=== PATIENT | male | born 1970 | race Caucasian/White ===

== ENCOUNTER 2017-02-26 09:57 | Inpatient (IN) | payer BC ==
[2017-02-26] VITALS (10 sets, daily range): BP systolic 160–220; BP diastolic 110–128
[~2017-02-26] VITALS: Ht 185.4 cm; Wt 120.2 kg
--- NOTE | ~2017-02-26 | CON ---
[place], [place] REPORT OF CONSULTATION NAME: SKYE FAN UNIT #: [id number] ROOM: 504 DOCTOR: ZAC CASIANO MD BIRTHDATE: [birth year] DOS: 02/26/2017 HISTORY OF PRESENT ILLNESS: This is a 46-year-old -[place] man who had hypertension diagnosed about 12 years ago. He has never had a heart attack, heart failure, stroke, cancer or kidney problems, COPD or any bleeding ulcers and no chronic ailments. He does not smoke. Father has hypertension as does his mother. No history of premature coronary artery disease. He had not been taking his medications for quite sometime now and went to see Dr. Chelsy Barba. Highest blood pressure recorded was 245/130 and it was little lower in the Emergency Department. He was admitted to the hospital for further assessment and management. He has received amlodipine, clonidine and small IV dose of labetalol in the ER and the last blood pressure was 196/122. He did not have any headaches or problem with vision, although on further questioning, it seems that he had a short episode of confusion. No swelling of the lower extremity or orthopnea. He does not admit to any exertional shortness of breath or any PND. He had left shoulder, left pectoralis area discomfort at rest and exertion did not make it worse. There were no accompanying palpitations. He had noticed some sweating. PHYSICAL EXAMINATION: GENERAL: This reveals a patient who is very pleasant, alert, oriented. cheerful, moderately overweight. There is no thyromegaly or finger clubbing. VITAL SIGNS: Pulse is regular, blood pressure 196/122. Most of the previous blood pressure recordings have been pretty much the same one being 220/128. NECK: JVP is normal. AJR is negative. There is no carotid bruit. HEART: There is no cardiomegaly. Auscultation reveals somewhat loud aortic component of the second heart sound. S4 is present. EXTREMITIES: There is no edema in the lower extremities. Pedal pulses are excellent. LUNGS: Clear to percussion and auscultation. ABDOMEN: Supple, nontender. No pulsatile masses present. DIAGNOSTIC STUDIES: An ECG showed normal sinus rhythm and a normal pattern. LABORATORY DATA: Glucose 89, BUN 7, creatinine 0.9, sodium 142, potassium 3.8, magnesium 2.0 and total CK of 373, slightly increased, but the troponin level was normal. Hemoglobin 14.7 g/dL. Chest x-ray demonstrated normal heart size and no pulmonary congestion. IMPRESSION: This patient has malignant hypertension that probably has called mild encephalopathy, i.e., mild confusional state for a short time. There is no evidence of cardiac decompensation. Renal function within normal. RECOMMENDATIONS: Obviously blood pressure need to be controlled, but I would recommend not to reduce the blood pressure too rapidly 180/100 or so of blood pressure for today and tomorrow would be fine and then medicine should be increased to finally bringing the blood pressure to about 125/80 or so. [place], [place] REPORT OF CONSULTATION NAME: SKYE FAN UNIT #: [id number] ROOM: [facility] DOCTOR: ZAC CASIANO MD BIRTHDATE: [birth year] He had chest pain. There is mild local tenderness over the shoulder. Because of the risk factors, I think it is probably a good idea to perform a Lexiscan Cardiolite study tomorrow. An echocardiogram would also be useful to assess any impact of severe hypertension on the heart. I thank you for this consult. ZAC CASIANO MD CM:CONSTR:REPORT OF CONSULTATION 1813 03/17/17 0843 interface
--- NOTE | ~2017-02-26 | EKG ---
[place], [place] ELECTROCARDIOGRAM REPORT NAME: SKYE FAN UNIT #: [id number] ROOM: 504 DOCTOR: ZAC CASIANO MD BIRTHDATE: [birth year] DOS: 02/26/2017 TIME: 1023 hours. Normal sinus rhythm at 90 beats per minute. The tracing is normal. No previous tracing is available for comparison. ZAC CASIANO MD CM:EKGRPT:ELECTROCARDIOGRAM REPORT [id number] ZAC CASIANO MD
--- NOTE | ~2017-02-26 | WRIGHTHP ---
[place], [place] PATIENT HISTORY AND PHYSICAL EXAM NAME: SKYE FAN [facility] #: [id number] UNIT #: [id number] ROOM: 504 DOCTOR: JOSE ANGEL FREEMAN MD BIRTHDATE: [birth year] DOS: 02/26/2017 HISTORY OF PRESENT ILLNESS: This patient is 46 years old. 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 He states he ran out of his medications several weeks ago and then finally went to see Dr. Gibson yesterday. His pressure systolic was in the 200s. Also had some left arm pain and dullness with some lightheadedness and diaphoresis, and also he felt slightly disoriented, so he was brought to the Emergency Room. His pressure was still in the 200s, and he was admitted with hypertensive emergency. The patient after admission has been placed on multiple medications. Blood pressure has come down slightly. He denies having any fever or any chills,. He does have some occasional left-sided chest discomfort. Denies having any abdominal pain, any nausea, any emesis. PAST MEDICAL HISTORY: Significant for benign hypertension. MEDICATIONS: He was on amlodipine 10 daily. SOCIAL HISTORY: Nonsmoker, does not use any alcohol. Works as a physical security specialist. He is not , has one child who is 9 months old. PHYSICAL EXAMINATION: VITAL SIGNS: Graphic trend shows a pressure of 156/110, respirations 18, temperature 98.4, pulse of 80. LUNGS: Diminished breath sounds. No wheezes, rales or rhonchi heard. HEART: Regular. ABDOMEN: Obese, soft. EXTREMITIES: Without any edema. LABORATORY DATA: EKG, nonspecific ST-T changes, sinus. ASSESSMENT AND PLAN: 1. The patient who presents with uncontrolled hypertension. The patient has been admitted. IV multiple medications have been started. Dr. Mary has seen the patient. Echocardiogram has been ordered. 2. Precordial chest pain in a patient with uncontrolled hypertension and will rule out myocardial infarction protocol was ordered, which is so far have been negative, and the patient is scheduled, has had a stress test this morning. We were awaiting the results of it. Lipid panel do show very good levels of HDL. If the stress comes back negative, the patient should be able to go home today on multiple antihypertensives. [place], [place] PATIENT HISTORY AND PHYSICAL EXAM NAME: SKYE FAN UNIT #: [id number] ROOM: [facility] DOCTOR: JOSE ANGEL FREEMAN MD BIRTHDATE: [birth year] JOSE ANGEL FREEMAN MD CM:HISPHYS:PATIENT HISTORY AND PHYSICAL EXAMINATION [id number] JOSE ANGEL FREEMAN MD 03/10/17 1342 interface
--- NOTE | ~2017-02-26 | ST ---
[place], [place] EXERCISE STRESS TEST REPORT NAME: SKYE FAN [facility] #: [id number] UNIT #: [id number] ROOM: 504 DOCTOR: JOSE ANGEL FREEMAN MD BIRTHDATE: [birth year] DOS: 02/26/2017 REASON FOR TESTING: Evaluation of chest pain. DESCRIPTION: After explaining the procedure and obtaining consent, the patient was subjected to Lexiscan infusion of 0.4 mg. Resting heart rate was 69 with a blood pressure of 148/102. During the infusion, the patient did not have any complaints. EKG appeared to be sinus with nonspecific ST-T wave changes. The patient did complain of some minimal chest pain and shortness of breath during the infusion. After the infusion, the patient was injected with Cardiolite and stress images were taken. ASSESSMENT AND PLAN: Lexiscan stress test without any ST-T wave changes or reversible perfusion defect. JOSE ANGEL FREEMAN MD CM:STRESS:EXERCISE STRESS TEST REPORT [id number] JOSE ANGEL FREEMAN MD
[2017-02-26 10:38] LABS: BASO # 0.2 10*3/uL (0.0-0.1); BASO % 2.8 % (0.0-1.0); EOS # 0.1 10*3/uL (0.0-0.4); EOS % 1.5 % (1.0-4.0); HEMATOCRIT 43.1 % (42.0-52.0); HEMOGLOBIN 14.7 g/dl (14.0-18.0); MEAN CELL VOLUME 92.5 fl (80.0-94.0); MEAN CORPUSCULAR HGB 31.5 pg (27.0-31.0); MEAN CORPUSCULAR HGB CONC 34.1 g/dl (33.0-37.0); MEAN PLATELET VOLUME 10.1 fl (9.6-12.3); MONO % 16.8 % (3.0-9.0); NEUT # 3.7 10*3/uL (2.3-7.9); NEUT % 61.6 % (47.0-73.0); PLATELET COUNT AUTOMATED 203 10*3/uL (130-400); RED BLOOD COUNT 4.66 10*6/uL (4.50-5.90); RED CELL DISTRI WIDTH 12.9 % (0-14.5); WHITE BLOOD COUNT 6.1 10*3/uL (4.8-10.8)
[2017-02-26 10:48] LABS: PROTHROMBIN TIME 10.8 SECONDS (9.0-12.4)
[2017-02-26 10:54] LABS: ALBUMIN 4.3 gm/dl (3.1-4.5); ALKALINE PHOSPHATASE 84 U/L (45-117); BILIRUBIN, TOTAL 0.5 mg/dl (0.2-1.0); BUN 7 mg/dl (7-24); CARBON DIOXIDE 25 mmol/L (21-32); CHLORIDE 103 mmol/L (98-107); CPK 373 U/L (39-308); EST GLOM FILT AFRICAN AMERICAN > 60 ml/min; GLUCOSE 89 mg/dL (65-99); POTASSIUM 3.8 mmol/L (3.5-5.1); SGOT/AST 53 IU/L (3-35); SGPT/ALT 57 U/L (12-78); SODIUM 142 mmol/L (136-145); TOTAL PROTEIN 8.1 gm/dL (6.4-8.2)
[2017-02-26 10:56] LABS: C-REACTIVE PROTEIN < 0.29 MG/DL (0-0.3); TROPONIN I 0.026 ng/ml (<0.045)
[2017-02-26 10:57] LABS: CKMB 7.2 ng/ml (0.5-3.6)
[2017-02-26 12:34] LABS: LA>2 REFLEX 2 HR DRAW NOW
[2017-02-26] MEDS ORDERED: NORVASC10 MG PO (13:42)
[2017-02-27] VITALS: BP 156/110
[2017-02-27 04:22] LABS: CHOLESTEROL 176 mg/dL (<200); HDL CHOLESTEROL 138 mg/dl (40-60); LDL CHOLESTEROL 17 mg/dL (9-159); TRIGLYCERIDES 103 mg/dl (<150); VLDL CHOLESTEROL 21 mg/dL (6-40)
[2017-02-27] MEDS ORDERED: NORVASC10 MG PO (08:04)
[2017-02-27] MEDS ORDERED: CLONIDINE0.2 MG PO (08:04)
[2017-02-27] MEDS ORDERED: ASPIRIN CHEWABL81 M1 PO (08:04)
[2017-02-27] MEDS ORDERED: COREG12.5 M1 PO (08:04)
[2017-02-27 09:21] VITALS: BP 148/102
== END 2017-02-27 13:18 | disposition home or self-care (01) | DRG 305 ==
LOC: ED 09:57 → 5E 12:06 → EDHOLD 12:06 → 5E 12:28
PROVIDERS: Emergency Medicine; Internal Medicine
PROC: 4A02XM4 Measurement of Cardiac Total Activity, External Approach (ICD-10-PCS; principal; 2017-02-26)
DX: I16.1 Hypertensive emergency (principal); I67.4 Hypertensive encephalopathy; I10 Essential (primary) hypertension; Z82.49 Family history of ischemic heart disease and other diseases of the circulatory system

== ENCOUNTER 2017-03-13 04:24 | Emergency (ER) | payer BC ==
[~2017-03-13] VITALS: Ht 182.8 cm; Wt 117.9 kg
[~2017-03-13 04:24] MED LIST: ASPIRIN CHEWABL81 M1 PO; CLONIDINE0.2 MG PO; COREG12.5 M1 PO; NORVASC10 MG PO
[2017-03-13 04:52] LABS: BASO # 0.2 10*3/uL (0.0-0.1); BASO % 1.9 % (0.0-1.0); EOS # 0.2 10*3/uL (0.0-0.4); EOS % 1.9 % (1.0-4.0); HEMATOCRIT 41.7 % (42.0-52.0); HEMOGLOBIN 14.2 g/dl (14.0-18.0); LYMPH # 1.9 10*3/uL (1.3-4.4); LYMPH % 21.8 % (27.0-41.0); MEAN CORPUSCULAR HGB CONC 34.1 g/dl (33.0-37.0); MONO # 1.1 10*3/uL (0.1-1.0); MONO % 12.5 % (3.0-9.0); NEUT # 5.3 10*3/uL (2.3-7.9); NEUT % 61.6 % (47.0-73.0); PLATELET COUNT AUTOMATED 189 10*3/uL (130-400); RED BLOOD COUNT 4.58 10*6/uL (4.50-5.90); RED CELL DISTRI WIDTH 12.4 % (0-14.5); WHITE BLOOD COUNT 8.6 10*3/uL (4.8-10.8)
[2017-03-13 05:10] LABS: BUN 8 mg/dl (7-24); CARBON DIOXIDE 23 mmol/L (21-32); CHLORIDE 105 mmol/L (98-107); EST GLOM FILT AFRICAN AMERICAN > 60 ml/min; GLUCOSE 101 mg/dL (65-99); POTASSIUM 3.6 mmol/L (3.5-5.1); SODIUM 142 mmol/L (136-145)
[2017-03-13 05:50] VITALS: BP 154/88
== END 2017-03-13 06:12 | disposition home or self-care (01) ==
LOC: ED 04:24
PROVIDERS: Emergency Medicine
DX: I15.9 Secondary hypertension, unspecified (principal); R42 Dizziness and giddiness; R06.02 Shortness of breath; Z79.899 Other long term (current) drug therapy; Z79.82 Long term (current) use of aspirin

== ENCOUNTER → 2018-03-27 | Outpatient (CLI) | payer OTHER ==
[2018-03-27 04:31] LABS: HEMATOCRIT 40.6 % (42.0-52.0); HEMOGLOBIN 13.7 g/dl (14.0-18.0); MEAN CELL VOLUME 96.2 fl (80.0-94.0); MEAN CORPUSCULAR HGB 32.5 pg (27.0-31.0); MEAN CORPUSCULAR HGB CONC 33.7 g/dl (33.0-37.0); MEAN PLATELET VOLUME 11.3 fl (9.6-12.3); RED BLOOD COUNT 4.22 10*6/uL (4.50-5.90); RED CELL DISTRI WIDTH 11.9 % (0-14.5); WHITE BLOOD COUNT 8.7 10*3/uL (4.8-10.8)
[2018-03-27 05:09] LABS: ALKALINE PHOSPHATASE 120 U/L (45-117); BUN 17 mg/dl (7-24); CHLORIDE 95 mmol/L (98-107); CHOLESTEROL 186 mg/dL (<200); CREATININE 1.32 mg/dL (0.70-1.30); FREE T4 1.37 ng/dl (0.76-1.46); HDL CHOLESTEROL 116 mg/dl (40-60); LDL CHOLESTEROL 54 mg/dL (9-159); POTASSIUM 3.2 mmol/L (3.5-5.1); SGOT/AST 164 IU/L (3-35); SGPT/ALT 134 U/L (12-78); SODIUM 135 mmol/L (136-145); TRIGLYCERIDES 78 mg/dl (<150); VLDL CHOLESTEROL 16 mg/dL (6-40)
[2018-03-27 06:56] LABS: VITAMIN D, 25-HYDROXY 12.8 ng/mL (30-100)
== END | disposition home or self-care (01) ==
LOC: LAB 03:47
PROVIDERS: Family Medicine
DX: M25.431 Effusion, right wrist (principal); E78.00 Pure hypercholesterolemia, unspecified; G47.00 Insomnia, unspecified; R53.83 Other fatigue; Z91.81 History of falling

== ENCOUNTER → 2018-04-12 | Outpatient (CLI) | payer OTHER | END | disposition home or self-care (01) | LOC: US 07:28 | DX: K76.0 Fatty (change of) liver, not elsewhere classified (principal) ==

== ENCOUNTER → 2021-07-03 | Outpatient (CLI) | payer SELFPAY ==
[2021-07-03 09:32] LABS: HEMATOCRIT 42.3 % (42.0-52.0); MEAN CELL VOLUME 92.8 fl (80.0-94.0); MEAN CORPUSCULAR HGB 30.9 pg (27.0-31.0); MEAN CORPUSCULAR HGB CONC 33.3 g/dl (33.0-37.0); MEAN PLATELET VOLUME 10.6 fl (9.6-12.3); RED BLOOD COUNT 4.56 10*6/uL (4.50-5.90); RED CELL DISTRI WIDTH 12.7 % (0-14.5); WHITE BLOOD COUNT 5.2 10*3/uL (4.8-10.8)
[2021-07-03 09:50] LABS: ALBUMIN 3.7 gm/dl (3.1-4.5); BUN 9 mg/dl (7-24); CHLORIDE 99 mmol/L (98-107); CHOLESTEROL 213 mg/dL (<200); SODIUM 131 mmol/L (136-145)
[2021-07-03 09:58] LABS: ALKALINE PHOSPHATASE 155 U/L (45-117); CREATININE 1.21 mg/dL (0.70-1.30); FREE T4 1.12 ng/dl (0.76-1.46); LDL CHOLESTEROL 82 mg/dL (9-159); SGOT/AST 121 IU/L (3-35); SGPT/ALT 66 U/L (12-78); TOTAL PROTEIN 8.4 gm/dL (6.4-8.2); TRIGLYCERIDES 57 mg/dl (<150)
[2021-07-06 10:07] LABS: ALTERNARIA ALTERNATA, IGE 4.21 kU/L (Class IV); AMERICAN ELM, IGE <0.10 kU/L (Class 0); ASPERGILLUS FUMIGATU, IGE 0.82 kU/L (Class II); BERMUDA GRASS, IGE 0.12 kU/L (Class 0/I); BIRCH, COMMON SILVER IGE <0.10 kU/L (Class 0); CLADOSPORIUM HERBARU, IGE 0.25 kU/L (Class 0/I); D FARINAE MITE 5.97 kU/L (Class IV); DOG DANDER, IGE 0.85 kU/L (Class II); IMMUNOGLOBULIN IgE 997 IU/mL (6-495); MAPLE LEAF SYCAMORE, IGE <0.10 kU/L (Class 0); MAPLE/BOX ELDER, IGE <0.10 kU/L (Class 0); MOUSE URINE IGE <0.10 kU/L (Class 0); PENICILLIUM CHRYSOGENUM, IGE 0.28 kU/L (Class 0/I); ROUGH PIGWEED, IGE 0.19 kU/L (Class 0/I); SHORT RAGWEED, IGE 1.85 kU/L (Class III); TIMOTHY, IGE 3.29 kU/L (Class III); WALNUT TREE, IGE 0.46 kU/L (Class I); WHITE ASH, IGE 0.16 kU/L (Class 0/I); WHITE MULBERRY, IGE <0.10 kU/L (Class 0)
[2021-07-07 12:06] LABS: MILK (COW), IGE 1.35 kU/L (Class II); PEANUT, IGE 0.11 kU/L (Class 0/I); SOYBEAN, IGE <0.10 kU/L (Class 0); WHEAT, IGE 0.29 kU/L (Class 0/I)
== END | disposition home or self-care (01) ==
LOC: LAB 08:54
PROVIDERS: ATTEND Family Medicine
DX: H60.13 Cellulitis of external ear, bilateral (principal); R21 Rash and other nonspecific skin eruption; I10 Essential (primary) hypertension; N52.9 Male erectile dysfunction, unspecified

== ENCOUNTER → 2022-05-07 | Outpatient (CLI) | payer OTHER ==
[2022-05-07 07:40] LABS: BASO # 0.1 10*3/uL (0.0-0.1); BASO % 1.7 % (0.0-1.0); EOS # 0.3 10*3/uL (0.0-0.4); EOS % 4.4 % (1.0-4.0); HEMATOCRIT 37.9 % (42.0-52.0); LYMPH # 1.2 10*3/uL (1.3-4.4); LYMPH % 21.5 % (27.0-41.0); MEAN CELL VOLUME 91.5 fl (80.0-94.0); MEAN CORPUSCULAR HGB 30.9 pg (27.0-31.0); MEAN CORPUSCULAR HGB CONC 33.8 g/dl (33.0-37.0); MEAN PLATELET VOLUME 9.1 fl (9.6-12.3); MONO # 0.8 10*3/uL (0.1-1.0); NEUT # 3.3 10*3/uL (2.3-7.9); NEUT % 58.1 % (47.0-73.0); PLATELET COUNT AUTOMATED 198 10*3/uL (130-400); RED BLOOD COUNT 4.14 10*6/uL (4.50-5.90); RED CELL DISTRI WIDTH 13.1 % (0-14.5); WHITE BLOOD COUNT 5.7 10*3/uL (4.8-10.8)
[2022-05-07 08:03] LABS: BUN 10 mg/dl (7-24); CHLORIDE 102 mmol/L (98-107); CREATININE 1.02 mg/dL (0.70-1.30); POTASSIUM 4.5 mmol/L (3.5-5.1); SGOT/AST 52 IU/L (3-35); SGPT/ALT 32 U/L (12-78); SODIUM 133 mmol/L (136-145); TOTAL PROTEIN 8.5 gm/dL (6.4-8.2)
[2022-05-07 08:11] LABS: ALKALINE PHOSPHATASE 150 U/L (45-117); FREE T4 1.35 ng/dl (0.76-1.46)
== END | disposition home or self-care (01) ==
LOC: LAB 07:18
PROVIDERS: ATTEND Nurse Practitioner Family
DX: L30.8 Other specified dermatitis (principal)

== ENCOUNTER → 2022-07-29 | Outpatient (CLI) | payer OTHER ==
[2022-07-29 08:01] LABS: HEMATOCRIT 38.3 % (42.0-52.0); MEAN CELL VOLUME 88.5 fl (80.0-94.0); MEAN CORPUSCULAR HGB 29.6 pg (27.0-31.0); MEAN CORPUSCULAR HGB CONC 33.4 g/dl (33.0-37.0); MEAN PLATELET VOLUME 9.9 fl (9.6-12.3); RED BLOOD COUNT 4.33 10*6/uL (4.50-5.90); RED CELL DISTRI WIDTH 16.4 % (0-14.5); WHITE BLOOD COUNT 4.4 10*3/uL (4.8-10.8)
[2022-07-29 08:35] LABS: ALKALINE PHOSPHATASE 175 U/L (45-117); BUN 7 mg/dl (7-24); CHLORIDE 105 mmol/L (98-107); POTASSIUM 4.4 mmol/L (3.5-5.1); SGOT/AST 69 IU/L (3-35); SGPT/ALT 37 U/L (12-78); SODIUM 136 mmol/L (136-145)
[2022-07-29 08:47] LABS: CHOLESTEROL 160 mg/dL (<200); CREATININE 0.87 mg/dL (0.70-1.30); LDL CHOLESTEROL 41 mg/dL (9-159); TOTAL PROTEIN 8.6 gm/dL (6.4-8.2); TRIGLYCERIDES 52 mg/dl (<150)
== END ==
LOC: LAB 07:24
PROVIDERS: ATTEND Physician Assistant
DX: Z12.5 Encounter for screening for malignant neoplasm of prostate (principal); L30.9 Dermatitis, unspecified; I10 Essential (primary) hypertension; R60.0 Localized edema

== ENCOUNTER 2022-08-16 12:30 | Inpatient (IN) | payer OTHER ==
[~2022-08-16] VITALS: Ht 182.9 cm; Wt 105.2 kg
[2022-08-16 12:35] VITALS: BP 104/67
[2022-08-16] MEDS ORDERED: NORVASC5 MG PO (12:56)
[2022-08-16] MEDS ORDERED: TYLENOL325 M2 PO (12:57)
[2022-08-16] MEDS ORDERED: QUINAPRIL40 MG PO (12:57)
[2022-08-16 14:15] LABS: BASO # 0.1 10*3/uL (0.0-0.1); BASO % 1.1 % (0.0-1.0); EOS # 0.1 10*3/uL (0.0-0.4); EOS % 1.6 % (1.0-4.0); HEMATOCRIT 35.2 % (42.0-52.0); LYMPH # 0.5 10*3/uL (1.3-4.4); LYMPH % 6.4 % (27.0-41.0); MEAN CELL VOLUME 84.2 fl (80.0-94.0); MEAN CORPUSCULAR HGB 30.4 pg (27.0-31.0); MEAN CORPUSCULAR HGB CONC 36.1 g/dl (33.0-37.0); MEAN PLATELET VOLUME 9.9 fl (9.6-12.3); MONO # 0.9 10*3/uL (0.1-1.0); MONO % 11.9 % (3.0-9.0); NEUT # 5.9 10*3/uL (2.3-7.9); NEUT % 78.1 % (47.0-73.0); PLATELET COUNT AUTOMATED 197 10*3/uL (130-400); RED BLOOD COUNT 4.18 10*6/uL (4.50-5.90); RED CELL DISTRI WIDTH 14.7 % (0-14.5); WHITE BLOOD COUNT 7.5 10*3/uL (4.8-10.8)
[2022-08-16 14:36] LABS: ALKALINE PHOSPHATASE 174 U/L (45-117); BUN 23 mg/dl (7-24); CHLORIDE 83 mmol/L (98-107); CREATININE 1.41 mg/dL (0.70-1.30); LIPASE 1055 U/L (73-393); POTASSIUM 5.4 mmol/L (3.5-5.1); SGOT/AST 65 IU/L (3-35); SGPT/ALT 39 U/L (12-78); TOTAL PROTEIN 8.1 gm/dL (6.4-8.2)
[2022-08-16 14:44] LABS: SODIUM 114 mmol/L (136-145)
[2022-08-16 15:41] LABS: BILIRUBIN Negative (Negative); BLOOD Trace-Lysed (Negative); CLARITY Turbid (Clear); COLOR Yellow (Yellow); GLUCOSE Negative (Negative); KETONE Negative (Negative); LEUKO ESTERASE 3+ (Negative); NITRITE Negative (Negative); UROBILINOGEN 0.2 E.U./dl (0.0-1.0)
[2022-08-16 16:08] LABS: BACTERIA 4+; WBC TNTC wbc/hpf (0-5)
[2022-08-16 16:34] VITALS: BP 98/48
[2022-08-16 20:55] VITALS: BP 101/59
[2022-08-16 21:54] LABS: CREATININE 1.66 mg/dL (0.70-1.30); POTASSIUM 4.6 mmol/L (3.5-5.1)
[2022-08-17] VITALS: BP 95/59
[2022-08-17] MEDS ORDERED: TRIAMTERENE-HC1 EACH PO (00:16)
[2022-08-17 00:57] LABS: CREATININE 1.58 mg/dL (0.70-1.30)
[2022-08-17 00:58] LABS: POTASSIUM 4.2 mmol/L (3.5-5.1)
[2022-08-17 04:00] VITALS: BP 110/65
[2022-08-17 06:26] LABS: BASO # 0.1 10*3/uL (0.0-0.1); BASO % 2.3 % (0.0-1.0); EOS # 0.2 10*3/uL (0.0-0.4); EOS % 4.1 % (1.0-4.0); LYMPH # 0.7 10*3/uL (1.3-4.4); LYMPH % 13.7 % (27.0-41.0); MEAN CELL VOLUME 86.6 fl (80.0-94.0); MEAN CORPUSCULAR HGB 30.2 pg (27.0-31.0); MEAN CORPUSCULAR HGB CONC 34.8 g/dl (33.0-37.0); MEAN PLATELET VOLUME 10.3 fl (9.6-12.3); MONO # 0.9 10*3/uL (0.1-1.0); MONO % 18.2 % (3.0-9.0); NEUT # 3.2 10*3/uL (2.3-7.9); NEUT % 60.9 % (47.0-73.0); PLATELET COUNT AUTOMATED 173 10*3/uL (130-400); RED BLOOD COUNT 3.81 10*6/uL (4.50-5.90); RED CELL DISTRI WIDTH 15.6 % (0-14.5); WHITE BLOOD COUNT 5.2 10*3/uL (4.8-10.8)
[2022-08-17 06:34] LABS: BUN 22 mg/dl (7-24); CHLORIDE 93 mmol/L (98-107); CHOLESTEROL 115 mg/dL (<200); CREATININE 1.45 mg/dL (0.70-1.30); LIPASE 942 U/L (73-393); POTASSIUM 4.4 mmol/L (3.5-5.1); SGOT/AST 57 IU/L (3-35); SGPT/ALT 36 U/L (12-78); SODIUM 124 mmol/L (136-145); TRIGLYCERIDES 35 mg/dl (<150)
[2022-08-17 06:41] LABS: ALKALINE PHOSPHATASE 151 U/L (45-117); LDL CHOLESTEROL 32 mg/dL (9-159); TOTAL PROTEIN 7.5 gm/dL (6.4-8.2)
[2022-08-17 08:00] VITALS: BP 105/59
[2022-08-17 09:49] LABS: BUN 20 mg/dl (7-24); CHLORIDE 94 mmol/L (98-107); CREATININE 1.23 mg/dL (0.70-1.30); POTASSIUM 4.1 mmol/L (3.5-5.1); SODIUM 124 mmol/L (136-145)
[2022-08-17 12:00] VITALS: BP 106/66
[2022-08-17 12:38] LABS: BUN 19 mg/dl (7-24); CHLORIDE 93 mmol/L (98-107); CREATININE 1.28 mg/dL (0.70-1.30); POTASSIUM 4.2 mmol/L (3.5-5.1); SODIUM 124 mmol/L (136-145)
[2022-08-17 16:00] VITALS: BP 110/71
[2022-08-17 17:45] LABS: BUN 20 mg/dl (7-24); CHLORIDE 94 mmol/L (98-107); CREATININE 1.16 mg/dL (0.70-1.30); POTASSIUM 4.2 mmol/L (3.5-5.1); SODIUM 124 mmol/L (136-145)
[2022-08-17 20:00] VITALS: BP 116/76
[2022-08-17 23:16] LABS: BUN 20 mg/dl (7-24); CHLORIDE 95 mmol/L (98-107); CREATININE 1.15 mg/dL (0.70-1.30); POTASSIUM 4.2 mmol/L (3.5-5.1); SODIUM 124 mmol/L (136-145)
[2022-08-18] VITALS: BP 101/57
[2022-08-18 02:25] LABS: BUN 22 mg/dl (7-24); CHLORIDE 96 mmol/L (98-107); CREATININE 1.18 mg/dL (0.70-1.30); POTASSIUM 4.1 mmol/L (3.5-5.1); SODIUM 127 mmol/L (136-145)
[2022-08-18 04:00] VITALS: BP 110/57
[2022-08-18 05:47] LABS: ALKALINE PHOSPHATASE 143 U/L (45-117); BUN 21 mg/dl (7-24); CHLORIDE 95 mmol/L (98-107); CREATININE 1.23 mg/dL (0.70-1.30); SGOT/AST 51 IU/L (3-35); SGPT/ALT 35 U/L (12-78); SODIUM 124 mmol/L (136-145); TOTAL PROTEIN 7.2 gm/dL (6.4-8.2)
[2022-08-18 06:21] LABS: BASO # 0.1 10*3/uL (0.0-0.1); BASO % 3.3 % (0.0-1.0); EOS # 0.3 10*3/uL (0.0-0.4); EOS % 7.4 % (1.0-4.0); HEMATOCRIT 31.8 % (42.0-52.0); LYMPH # 0.8 10*3/uL (1.3-4.4); LYMPH % 18.4 % (27.0-41.0); MEAN CELL VOLUME 87.8 fl (80.0-94.0); MEAN CORPUSCULAR HGB 30.4 pg (27.0-31.0); MEAN CORPUSCULAR HGB CONC 34.6 g/dl (33.0-37.0); MEAN PLATELET VOLUME 9.9 fl (9.6-12.3); MONO # 0.6 10*3/uL (0.1-1.0); MONO % 14.4 % (3.0-9.0); NEUT # 2.4 10*3/uL (2.3-7.9); NEUT % 55.8 % (47.0-73.0); PLATELET COUNT AUTOMATED 162 10*3/uL (130-400); RED BLOOD COUNT 3.62 10*6/uL (4.50-5.90); RED CELL DISTRI WIDTH 15.9 % (0-14.5); WHITE BLOOD COUNT 4.3 10*3/uL (4.8-10.8)
[2022-08-18 08:00] VITALS: BP 112/59
[2022-08-18 12:00] VITALS: BP 99/63
[2022-08-18 16:00] VITALS: BP 112/74
[2022-08-18 19:45] LABS: BUN 19 mg/dl (7-24); CHLORIDE 98 mmol/L (98-107); CREATININE 1.35 mg/dL (0.70-1.30); SODIUM 128 mmol/L (136-145)
[2022-08-18 20:00] VITALS: BP 102/61
[2022-08-19] VITALS: BP 98/60
[2022-08-19 04:00] VITALS: BP 100/60
[2022-08-19 05:43] LABS: BUN 21 mg/dl (7-24); CREATININE 1.09 mg/dL (0.70-1.30); POTASSIUM 4.2 mmol/L (3.5-5.1); SODIUM 133 mmol/L (136-145)
[2022-08-19 05:44] LABS: CHLORIDE 103 mmol/L (98-107)
[2022-08-19 06:39] LABS: BASO # 0.2 10*3/uL (0.0-0.1); BASO % 2.5 % (0.0-1.0); EOS # 0.5 10*3/uL (0.0-0.4); EOS % 7.6 % (1.0-4.0); HEMATOCRIT 31.3 % (42.0-52.0); LYMPH # 1.3 10*3/uL (1.3-4.4); LYMPH % 22.2 % (27.0-41.0); MEAN CELL VOLUME 89.7 fl (80.0-94.0); MEAN CORPUSCULAR HGB 30.9 pg (27.0-31.0); MEAN CORPUSCULAR HGB CONC 34.5 g/dl (33.0-37.0); MEAN PLATELET VOLUME 9.9 fl (9.6-12.3); MONO # 1.2 10*3/uL (0.1-1.0); MONO % 19.9 % (3.0-9.0); NEUT # 2.8 10*3/uL (2.3-7.9); NEUT % 46.8 % (47.0-73.0); PLATELET COUNT AUTOMATED 164 10*3/uL (130-400); RED BLOOD COUNT 3.49 10*6/uL (4.50-5.90); RED CELL DISTRI WIDTH 16.5 % (0-14.5); WHITE BLOOD COUNT 5.9 10*3/uL (4.8-10.8)
[2022-08-19 08:00] VITALS: BP 117/79
[2022-08-19] MEDS ORDERED: OMNICEF300 MG PO (11:00)
== END 2022-08-19 12:00 | disposition home or self-care (01) | DRG 438 ==
LOC: ED 12:30 → ICCU 17:49 → EDHOLD 17:49 → ICCU 20:13
PROVIDERS: Internal Medicine; Nurse Practitioner Family; Student in an Organized Health Care Education/Training Program; ADMIT Emergency Medicine; ATTEND Emergency Medicine
DX: K85.90 Acute pancreatitis without necrosis or infection, unspecified (principal); N17.0 Acute kidney failure with tubular necrosis; E87.1 Hypo-osmolality and hyponatremia; N39.0 Urinary tract infection, site not specified; J98.11 Atelectasis; K80.20 Calculus of gallbladder without cholecystitis without obstruction; T50.2X5A Adverse effect of carbonic-anhydrase inhibitors, benzothiadiazides and other diuretics, initial encounter; L30.9 Dermatitis, unspecified; I10 Essential (primary) hypertension; E78.5 Hyperlipidemia, unspecified; R73.9 Hyperglycemia, unspecified; E83.41 Hypermagnesemia; R74.01 Elevation of levels of liver transaminase levels; D64.9 Anemia, unspecified; E87.8 Other disorders of electrolyte and fluid balance, not elsewhere classified; Z98.84 Bariatric surgery status; Z82.49 Family history of ischemic heart disease and other diseases of the circulatory system; Y92.89 Other specified places as the place of occurrence of the external cause

== ENCOUNTER → 2022-09-05 | Outpatient (CLI) | payer OTHER ==
[~2022-09-05] MED LIST changes: +NORVASC5 MG PO; +OMNICEF300 MG PO; +QUINAPRIL40 MG PO; +TRIAMTERENE-HC1 EACH PO; +TYLENOL325 M2 PO
[2022-09-05 07:42] LABS: ALKALINE PHOSPHATASE 155 U/L (45-117); BUN 12 mg/dl (7-24); CHLORIDE 112 mmol/L (98-107); CREATININE 1.21 mg/dL (0.70-1.30); SGPT/ALT 27 U/L (12-78); SODIUM 140 mmol/L (136-145); TOTAL PROTEIN 8.2 gm/dL (6.4-8.2)
== END | disposition home or self-care (01) ==
LOC: LAB 06:15
PROVIDERS: ATTEND Physician Assistant
DX: I10 Essential (primary) hypertension (principal); N17.0 Acute kidney failure with tubular necrosis; R60.0 Localized edema; L30.9 Dermatitis, unspecified; E87.1 Hypo-osmolality and hyponatremia

== ENCOUNTER → 2022-10-02 | Outpatient (CLI) | payer OTHER ==
[2022-10-02 08:32] LABS: CREATININE 1.52 mg/dL (0.70-1.30); POTASSIUM 4.3 mmol/L (3.4-5.1)
== END | disposition home or self-care (01) ==
LOC: LAB 01:35
PROVIDERS: ATTEND Internal Medicine
DX: I10 Essential (primary) hypertension (principal); R39.11 Hesitancy of micturition

== ENCOUNTER → 2023-06-25 | Outpatient (CLI) | payer OTHER ==
[2023-06-25 11:57] LABS: HEMATOCRIT 28.8 % (42.0-52.0); MEAN CELL VOLUME 91.4 fl (80.0-94.0); MEAN CORPUSCULAR HGB 30.5 pg (27.0-31.0); MEAN CORPUSCULAR HGB CONC 33.3 g/dl (33.0-37.0); MEAN PLATELET VOLUME 10.6 fl (9.6-12.3); RED BLOOD COUNT 3.15 10*6/uL (4.50-5.90); RED CELL DISTRI WIDTH 13.3 % (0-14.5); WHITE BLOOD COUNT 4.2 10*3/uL (4.8-10.8)
[2023-06-25 12:28] LABS: ALKALINE PHOSPHATASE 139 U/L (46-116); BUN 14 mg/dl (9-23); CHLORIDE 106 mmol/L (98-107); CHOLESTEROL 149 mg/dL (<200); LDL CHOLESTEROL 36 mg/dL (9-159); POTASSIUM 4.8 mmol/L (3.4-5.1); SGPT/ALT 18 U/L (10-49); TRIGLYCERIDES 59 mg/dl (<150)
[2023-06-26 13:07] LABS: CCP ANTIBODIES IGG/IGA 9 units (0-19)
== END | disposition home or self-care (01) ==
LOC: LAB 00:04
PROVIDERS: ATTEND Physician Assistant
DX: Z12.5 Encounter for screening for malignant neoplasm of prostate (principal); L30.9 Dermatitis, unspecified; I10 Essential (primary) hypertension; N52.1 Erectile dysfunction due to diseases classified elsewhere; M19.90 Unspecified osteoarthritis, unspecified site

== ENCOUNTER 2023-07-28 13:52 | Inpatient (IN) | payer OTHER ==
[~2023-07-28] VITALS: Ht 182.8 cm; Wt 124.0 kg
[2023-07-28 14:00] VITALS: BP 126/53
[2023-07-28 14:22] LABS: HEMATOCRIT 29.9 % (42.0-52.0); MEAN CELL VOLUME 93.7 fl (80.0-94.0); MEAN CORPUSCULAR HGB 28.8 pg (27.0-31.0); MEAN CORPUSCULAR HGB CONC 30.8 g/dl (33.0-37.0); MEAN PLATELET VOLUME 10.2 fl (9.6-12.3); PLATELET COUNT AUTOMATED 94 10*3/uL (130-400); RED BLOOD COUNT 3.19 10*6/uL (4.50-5.90); RED CELL DISTRI WIDTH 14.6 % (0-14.5); WHITE BLOOD COUNT 12.4 10*3/uL (4.8-10.8)
[2023-07-28 14:25] LABS: MANUAL DIFF REFLEX YES
[2023-07-28 14:33] LABS: ACT PARTIAL THROMBO TIME 46.8 SECONDS (20.0-32.1); INTERNATIONAL NORM RATIO 1.8 (2.0-3.5)
[2023-07-28 14:44] LABS: ALKALINE PHOSPHATASE 83 U/L (46-116); BUN 22 mg/dl (9-23); CHLORIDE 97 mmol/L (98-107); LIPASE 35 U/L (12-53); POTASSIUM 5.2 mmol/L (3.4-5.1); SGPT/ALT 90 U/L (10-49); TOTAL PROTEIN 7.1 gm/dL (6.0-8.0)
[2023-07-28 14:49] LABS: BASOPHILS 1 % (0-1); PLATELET SUFFICIENCY LOW (NORMAL); TOTAL CELLS COUNTED 100 #CELLS
[2023-07-28 14:50] LABS: BURR CELLS FEW; OVALOCYTES FEW
[2023-07-28 15:34] VITALS: BP 111/42
[2023-07-28 17:37] LABS: ABG BASE EXCESS -19.2 mmol/L (-2.0-2.0); ARTERIAL BLOOD GAS PH 7.168 (7.35-7.45)
[2023-07-28 18:54] LABS: URINE AMPHETAMINES Negative (1000ng/ml); URINE BARBITURATES Negative (200ng/ml); URINE BENZODIAZEPINES Negative (200ng/ml); URINE CANNABINOIDS (THC) Negative (50ng/ml); URINE COCAINE Negative (300ng/ml); URINE METHADONE Negative (300ng/ml); URINE OPIATES Negative (300ng/ml); URINE PHENCYCLIDINE Negative (25ng/ml)
[2023-07-28 20:25] VITALS: BP 91/39
[2023-07-28] MEDS ORDERED: LISINOPRIL30 MG PO (21:57)
[2023-07-28] MEDS ORDERED: MELOXICAM15 MG PO (21:57)
[2023-07-28 22:00] VITALS: BP 96/40
[2023-07-28 23:00] VITALS: BP 98/36
[2023-07-29] VITALS (36 sets, daily range): BP systolic 69–137; BP diastolic 32–82
[2023-07-29 01:09] LABS: BILIRUBIN 1+ (Negative); BLOOD 2+ (Negative); CLARITY Turbid (Clear); COLOR Dark Yellow (Yellow); GLUCOSE Negative (Negative); KETONE Trace (Negative); LEUKO ESTERASE 1+ (Negative); NITRITE Negative (Negative); SPECIFIC GRAVITY 1.015 (1.001-1.030)
[2023-07-29 01:22] LABS: BACTERIA 1+; RBC 16-20 rbc/hpf (0-2)
[2023-07-29 01:46] LABS: POTASSIUM 5.4 mmol/L (3.4-5.1)
[2023-07-29 05:20] LABS: ACT PARTIAL THROMBO TIME 64.7 SECONDS (20.0-32.1)
[2023-07-29 06:10] LABS: VITAMIN D, 25-HYDROXY 4.4 ng/mL (30-100)
[2023-07-29 06:11] LABS: ALKALINE PHOSPHATASE 58 U/L (46-116); BUN 22 mg/dl (9-23); CHLORIDE 99 mmol/L (98-107); CHOLESTEROL 102 mg/dL (<200); FREE T4 0.92 ng/dl (0.89-1.76); LDL CHOLESTEROL 31 mg/dL (9-159); POTASSIUM 4.7 mmol/L (3.4-5.1); SGPT/ALT 70 U/L (10-49); TOTAL PROTEIN 6.2 gm/dL (6.0-8.0); TRIGLYCERIDES 124 mg/dl (<150)
[2023-07-29 07:53] LABS: ARTERIAL BLOOD GAS PH 7.32 (7.35-7.45)
[2023-07-29 08:28] LABS: HEMATOCRIT 25.8 % (42.0-52.0); MEAN CORPUSCULAR HGB 29.1 pg (27.0-31.0); MEAN CORPUSCULAR HGB CONC 32.2 g/dl (33.0-37.0); MEAN PLATELET VOLUME 11.3 fl (9.6-12.3); PLATELET COUNT AUTOMATED 72 10*3/uL (130-400); RED BLOOD COUNT 2.85 10*6/uL (4.50-5.90); RED CELL DISTRI WIDTH 14.9 % (0-14.5); WHITE BLOOD COUNT 18.3 10*3/uL (4.8-10.8)
[2023-07-29 08:39] LABS: MANUAL DIFF REFLEX YES; MEAN CELL VOLUME 90.5 fl (80.0-94.0)
[2023-07-29 08:41] LABS: TOTAL CELLS COUNTED 100 #CELLS
[2023-07-29 08:42] LABS: BURR CELLS MODERATE; DOHLE BODIES FEW; OVALOCYTES FEW; PLATELET SUFFICIENCY LOW (NORMAL); POLYCHROMASIA SLIGHT; ROULEAUX SLIGHT; SCHISTOCYTES FEW; TOXIC GRANULATION SLIGHT; VACUOLATION OF NEUTROPHILS SLIGHT
[2023-07-29 12:47] LABS: BILIRUBIN 1+ (Negative); BLOOD 2+ (Negative); CLARITY Cloudy (Clear); COLOR Dark Yellow (Yellow); GLUCOSE Negative (Negative); KETONE Trace (Negative); LEUKO ESTERASE 1+ (Negative); NITRITE Negative (Negative); SPECIFIC GRAVITY 1.015 (1.001-1.030)
[2023-07-29 19:46] LABS: ABG BASE EXCESS -13.6 mmol/L (-2.0-2.0); ARTERIAL BLOOD GAS PH 7.233 (7.35-7.45)
[2023-07-29 22:24] LABS: POTASSIUM 5.1 mmol/L (3.4-5.1)
[2023-07-30] VITALS (27 sets, daily range): BP systolic 89–123; BP diastolic 53–88
[2023-07-30 05:06] LABS: HBSAG Negative (Negative); HEP B CORE AB, IGM Negative (Negative); HEPATITIS C ANTIBODY Non Reactive (Non Reactive)
[2023-07-30 06:06] LABS: TOTAL PROTEIN 6.1 gm/dL (6.0-8.0)
[2023-07-30 06:18] LABS: HEMATOCRIT 26.5 % (42.0-52.0); MANUAL DIFF REFLEX YES; MEAN CELL VOLUME 87.5 fl (80.0-94.0); MEAN CORPUSCULAR HGB CONC 33.2 g/dl (33.0-37.0); PLATELET COUNT AUTOMATED 67 10*3/uL (130-400); RED BLOOD COUNT 3.03 10*6/uL (4.50-5.90); WHITE BLOOD COUNT 20.7 10*3/uL (4.8-10.8)
[2023-07-30 06:22] LABS: ACT PARTIAL THROMBO TIME 57.5 SECONDS (20.0-32.1); INTERNATIONAL NORM RATIO 1.3 (2.0-3.5)
[2023-07-30 06:32] LABS: POTASSIUM 5.6 mmol/L (3.4-5.1)
[2023-07-30 07:21] LABS: BURR CELLS MODERATE; DOHLE BODIES FEW; OVALOCYTES FEW; POLYCHROMASIA SLIGHT; SCHISTOCYTES FEW; TOTAL CELLS COUNTED 100 #CELLS; TOXIC GRANULATION SLIGHT; VACUOLATION OF NEUTROPHILS SLIGHT
[2023-07-30 07:22] LABS: PLATELET SUFFICIENCY LOW (NORMAL); ROULEAUX SLIGHT
[2023-07-30 11:01] LABS: ABG BASE EXCESS -13.3 mmol/L (-2.0-2.0); ARTERIAL BLOOD GAS PH 7.192 (7.35-7.45)
[2023-07-30 11:35] LABS: URINE CHLORIDE, RANDOM < 20 mmol/L
[2023-07-31] VITALS (18 sets, daily range): BP systolic 118–164; BP diastolic 75–100
[2023-07-31 05:54] LABS: TOTAL PROTEIN 6.1 gm/dL (6.0-8.0)
[2023-07-31 06:03] LABS: POTASSIUM 3.5 mmol/L (3.4-5.1)
[2023-07-31 06:14] LABS: INTERNATIONAL NORM RATIO 1.1 (2.0-3.5)
[2023-07-31 06:22] LABS: HEMATOCRIT 24.9 % (42.0-52.0); MEAN CORPUSCULAR HGB 28.5 pg (27.0-31.0); MEAN CORPUSCULAR HGB CONC 33.7 g/dl (33.0-37.0); MEAN PLATELET VOLUME 12.2 fl (9.6-12.3); PLATELET COUNT AUTOMATED 51 10*3/uL (130-400); RED BLOOD COUNT 2.95 10*6/uL (4.50-5.90); RED CELL DISTRI WIDTH 15.1 % (0-14.5); WHITE BLOOD COUNT 19.3 10*3/uL (4.8-10.8)
[2023-07-31 06:40] LABS: MANUAL DIFF REFLEX YES
[2023-07-31 07:40] LABS: ABG BASE EXCESS -9.2 mmol/L (-2.0-2.0); ARTERIAL BLOOD GAS PH 7.347 (7.35-7.45)
[2023-07-31 07:46] LABS: MEAN CELL VOLUME 84.4 fl (80.0-94.0)
[2023-07-31 07:48] LABS: TOTAL CELLS COUNTED 100 #CELLS
[2023-07-31 07:49] LABS: BURR CELLS FEW; PLATELET SUFFICIENCY LOW (NORMAL)
[2023-08-01] VITALS (13 sets, daily range): BP systolic 152–169; BP diastolic 87–100
[2023-08-01 06:06] LABS: HEMATOCRIT 23.8 % (42.0-52.0); MEAN CORPUSCULAR HGB 28.7 pg (27.0-31.0); MEAN CORPUSCULAR HGB CONC 35.3 g/dl (33.0-37.0); PLATELET COUNT AUTOMATED 44 10*3/uL (130-400); RED BLOOD COUNT 2.93 10*6/uL (4.50-5.90); RED CELL DISTRI WIDTH 14.9 % (0-14.5); WHITE BLOOD COUNT 10.9 10*3/uL (4.8-10.8)
[2023-08-01 06:37] LABS: MEAN CELL VOLUME 81.2 fl (80.0-94.0)
[2023-08-01 06:38] LABS: MANUAL DIFF REFLEX YES
[2023-08-01 06:39] LABS: POTASSIUM 2.9 mmol/L (3.4-5.1); TOTAL CELLS COUNTED 100 #CELLS; TOTAL PROTEIN 5.9 gm/dL (6.0-8.0)
[2023-08-01 06:41] LABS: PLATELET SUFFICIENCY LOW (NORMAL)
[2023-08-01 06:42] LABS: POLYCHROMASIA SLIGHT
[2023-08-01 06:43] LABS: OVALOCYTES FEW; SCHISTOCYTES FEW; TARGET CELLS FEW
[2023-08-01 08:39] LABS: ABG BASE EXCESS -0.8 mmol/L (-2.0-2.0); ARTERIAL BLOOD GAS PH 7.441 (7.35-7.45)
== END 2023-08-01 20:51 | disposition short-term general hospital (02) | DRG 871 ==
LOC: ED 13:52 → ICCU 15:28 → EDHOLD 15:28 → ICCU 07-29 15:36
PROVIDERS: Emergency Medicine; Family Medicine; Internal Medicine; Nurse Practitioner Family; Student in an Organized Health Care Education/Training Program; ADMIT Internal Medicine; ATTEND Internal Medicine
PROC: 30233K1 Transfusion of Nonautologous Frozen Plasma into Peripheral Vein, Percutaneous Approach (ICD-10-PCS; principal; 2023-07-29)
PROC: 02HV33Z Insertion of Infusion Device into Superior Vena Cava, Percutaneous Approach (ICD-10-PCS; 2023-07-29)
PROC: B548ZZA Ultrasonography of Superior Vena Cava, Guidance (ICD-10-PCS; 2023-07-29)
PROC: 5A1945Z Respiratory Ventilation, 24-96 Consecutive Hours (ICD-10-PCS; 2023-07-29)
PROC: 0BH17EZ Insertion of Endotracheal Airway into Trachea, Via Natural or Artificial Opening (ICD-10-PCS; 2023-07-29)
DX: A41.9 Sepsis, unspecified organism (principal); J18.9 Pneumonia, unspecified organism; N17.0 Acute kidney failure with tubular necrosis; J96.90 Respiratory failure, unspecified, unspecified whether with hypoxia or hypercapnia; E87.20 Acidosis, unspecified; F10.29 Alcohol dependence with unspecified alcohol-induced disorder; E87.1 Hypo-osmolality and hyponatremia; E44.0 Moderate protein-calorie malnutrition; N39.0 Urinary tract infection, site not specified; K52.9 Noninfective gastroenteritis and colitis, unspecified; R65.20 Severe sepsis without septic shock; E87.8 Other disorders of electrolyte and fluid balance, not elsewhere classified; I10 Essential (primary) hypertension; E66.9 Obesity, unspecified; E83.42 Hypomagnesemia; E87.5 Hyperkalemia; D72.9 Disorder of white blood cells, unspecified; E83.51 Hypocalcemia; K70.30 Alcoholic cirrhosis of liver without ascites; D69.6 Thrombocytopenia, unspecified; D64.9 Anemia, unspecified; E80.6 Other disorders of bilirubin metabolism; R74.01 Elevation of levels of liver transaminase levels; K80.80 Other cholelithiasis without obstruction; Z82.49 Family history of ischemic heart disease and other diseases of the circulatory system; Z98.84 Bariatric surgery status; Z68.34 Body mass index [BMI] 34.0-34.9, adult

== ENCOUNTER → 2023-11-13 | Outpatient (CLI) | payer OTHER ==
[~2023-11-13] MED LIST changes: +LISINOPRIL30 MG PO; +MELOXICAM15 MG PO
[2023-11-13 13:47] LABS: BASO # 0.1 10*3/uL (0.0-0.1); BASO % 2.3 % (0.0-1.0); EOS # 0.3 10*3/uL (0.0-0.4); EOS % 5.9 % (1.0-4.0); HEMATOCRIT 39.3 % (42.0-52.0); LYMPH # 1.4 10*3/uL (1.3-4.4); MEAN CELL VOLUME 94.9 fl (80.0-94.0); MEAN CORPUSCULAR HGB 29.5 pg (27.0-31.0); MEAN PLATELET VOLUME 10.5 fl (9.6-12.3); MONO # 0.7 10*3/uL (0.1-1.0); MONO % 12.7 % (3.0-9.0); NEUT # 3.1 10*3/uL (2.3-7.9); NEUT % 53.9 % (47.0-73.0); PLATELET COUNT AUTOMATED 164 10*3/uL (130-400); RED BLOOD COUNT 4.14 10*6/uL (4.50-5.90); RED CELL DISTRI WIDTH 14.1 % (0-14.5); WHITE BLOOD COUNT 5.8 10*3/uL (4.8-10.8)
[2023-11-13 14:13] LABS: ALKALINE PHOSPHATASE 118 U/L (46-116); BUN 19 mg/dl (9-23); CHLORIDE 108 mmol/L (98-107); POTASSIUM 4.5 mmol/L (3.4-5.1); SGPT/ALT 30 U/L (5-49); TOTAL PROTEIN 7.5 gm/dL (6.0-8.0)
== END | disposition home or self-care (01) ==
LOC: LAB 13:31
PROVIDERS: ATTEND Nurse Practitioner Family
DX: L30.8 Other specified dermatitis (principal)

== ENCOUNTER → 2023-12-11 | Outpatient (CLI) | payer OTHER ==
[2023-12-11 15:09] LABS: TOTAL PROTEIN 7.3 gm/dL (6.0-8.0)
== END ==
LOC: LAB 12-08 12:12
PROVIDERS: ATTEND Physician Assistant
DX: R74.8 Abnormal levels of other serum enzymes (principal)

== ENCOUNTER → 2024-04-07 | Outpatient (CLI) | payer OTHER ==
[2024-04-07 09:02] LABS: HEMATOCRIT 36.7 % (42.0-52.0); MEAN CELL VOLUME 95.6 fl (80.0-94.0); MEAN CORPUSCULAR HGB CONC 32.4 g/dl (33.0-37.0); MEAN PLATELET VOLUME 10.4 fl (9.6-12.3); RED BLOOD COUNT 3.84 10*6/uL (4.50-5.90); RED CELL DISTRI WIDTH 13.5 % (0-14.5); WHITE BLOOD COUNT 4.7 10*3/uL (4.8-10.8)
[2024-04-07 09:29] LABS: ALKALINE PHOSPHATASE 155 U/L (46-116); BUN 19 mg/dl (9-23); CHLORIDE 108 mmol/L (98-107); POTASSIUM 4.8 mmol/L (3.4-5.1); SGPT/ALT 59 U/L (5-49); TOTAL PROTEIN 7.8 gm/dL (6.0-8.0)
== END | disposition home or self-care (01) ==
LOC: LAB 08:39
PROVIDERS: ATTEND Physician Assistant
DX: K74.60 Unspecified cirrhosis of liver (principal); M19.90 Unspecified osteoarthritis, unspecified site; M25.50 Pain in unspecified joint; Z53.20 Procedure and treatment not carried out because of patient's decision for unspecified reasons

== ENCOUNTER 2024-06-25 20:41 | Emergency (ER) | payer OTHER ==
[~2024-06-25] VITALS: Ht 182.8 cm; Wt 104.3 kg
[2024-06-25 20:47] VITALS: BP 139/88
[2024-06-25] MEDS ORDERED: Tdap Vaccine 0.5 ML SYR (Adult Vaccine) IM ONE (20:55)
== END 2024-06-25 23:06 | disposition left against medical advice (07) ==
LOC: ED 20:41
DX: S01.01XA Laceration without foreign body of scalp, initial encounter (principal); I10 Essential (primary) hypertension; F17.220 Nicotine dependence, chewing tobacco, uncomplicated; F10.10 Alcohol abuse, uncomplicated; Z53.29 Procedure and treatment not carried out because of patient's decision for other reasons; Z98.890 Other specified postprocedural states; W01.198A Fall on same level from slipping, tripping and stumbling with subsequent striking against other object, initial encounter; Y93.89 Activity, other specified; Y92.002 Bathroom of unspecified non-institutional (private) residence as the place of occurrence of the external cause; Y99.8 Other external cause status